=== PATIENT | male | born 1970 | race Two or more races ===

== ENCOUNTER 2021-07-12 20:19 | Emergency (ER) | payer OTHER ==
[~2021-07-12] VITALS: Ht 162.6 cm; Wt 79.4 kg
[2021-07-13 02:20] VITALS: BP 137/83
== END 2021-07-13 03:49 | disposition home or self-care (01) ==
LOC: ER 20:21
DX: S43.402A Unspecified sprain of left shoulder joint, initial encounter (principal); S83.91XA Sprain of unspecified site of right knee, initial encounter; V59.49XA Driver of pick-up truck or van injured in collision with other motor vehicles in traffic accident, initial encounter; Y93.I9 Activity, other involving external motion; Y92.488 Other paved roadways as the place of occurrence of the external cause; Y99.8 Other external cause status
CPT/HCPCS: 73030; 73590